=== PATIENT | male | born 1965 | race Caucasian/White ===

== ENCOUNTER → 2016-12-04 | Outpatient (CLI) | payer OTHER ==
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
== END | disposition home or self-care (01) ==
LOC: SCT 12:25 → CCAT 12:25 → SCT 13:00
DX: J90 Pleural effusion, not elsewhere classified (principal); N28.89 Other specified disorders of kidney and ureter; M47.899 Other spondylosis, site unspecified
CPT/HCPCS: 71260; Q9967